=== PATIENT | female | born 1965 | race African-American/Black ===

== ENCOUNTER 2021-12-25 10:24 | Emergency (ER) | payer OTHER ==
[~2021-12-25] VITALS: Ht 165.1 cm; Wt 59.0 kg
[2021-12-25 11:54] LABS: HEMATOCRIT. 32.2 % (36.0-48.0); MEAN CORPUSCULAR HEMOGLOBIN 26.6 pg (28.0-32.0); MEAN CORPUSCULAR VOLUME 85.9 fL (81.0-99.0); MEAN PLATELET VOLUME 9.3 fl (7.4-10.4); PLATELET 144 x1000/uL (130-400); RED BLOOD CELL COUNT 3.75 mill/uL (4.2-5.4); RED CELL DISTRIBUTION WIDTH 21.4 % (11.6-14.6)
[2021-12-25 12:01] LABS: CHLORIDE 117 mEq/L (98-107)
[2021-12-25] MEDS ORDERED: VANCOMYCIN 1G PREMIX 200 ML IV STA (12:06)
[2021-12-25] MEDS ORDERED: PIPERACILLIN/TAZOBACTAM 3.375GM/50ML PREMIX IV NR (12:06)
[2021-12-25] MEDS ORDERED: VANCOMYCIN 1GM PMX (XELLIA) 200 ML IV STA (12:26)
[2021-12-25 12:27] LABS: PLATELET ESTIMATE NORMAL
[2021-12-25 19:17] VITALS: BP 96/52
== END 2021-12-25 20:12 | disposition short-term general hospital (02) ==
LOC: ER 10:24
DX: A41.9 Sepsis, unspecified organism (principal); J96.01 Acute respiratory failure with hypoxia; J18.9 Pneumonia, unspecified organism; R65.20 Severe sepsis without septic shock; U07.1 COVID-19; E87.0 Hyperosmolality and hypernatremia; T40.2X1A Poisoning by other opioids, accidental (unintentional), initial encounter; R41.82 Altered mental status, unspecified; R00.0 Tachycardia, unspecified; Y92.013 Bedroom of single-family (private) house as the place of occurrence of the external cause; C50.919 Malignant neoplasm of unspecified site of unspecified female breast; C78.7 Secondary malignant neoplasm of liver and intrahepatic bile duct; C79.31 Secondary malignant neoplasm of brain; Z92.21 Personal history of antineoplastic chemotherapy
CPT/HCPCS: 36415; 71045; 80053; 83605; 83880; 84484; 85025; 87040; 87426; 93005; 96365; 96366; 96368; 99291; J2543; J3370